=== PATIENT | male | born 1975 ===

== ENCOUNTER 2022-04-17 05:30 | Day surgery (SDC) | payer OTHER ==
[2022-04-17] MEDS ORDERED: PROTONIX20 MG PO (07:43)
== END 2022-04-17 09:15 | disposition home or self-care (01) ==
LOC: AMB-ENDOS 05:30
PROVIDERS: ATTEND Surgery
DX: K29.50 Unspecified chronic gastritis without bleeding (principal); B96.81 Helicobacter pylori [H. pylori] as the cause of diseases classified elsewhere; Z20.822 Contact with and (suspected) exposure to COVID-19; E66.9 Obesity, unspecified; K44.9 Diaphragmatic hernia without obstruction or gangrene; I10 Essential (primary) hypertension